=== PATIENT | female | born 1985 | race Caucasian/White ===

== ENCOUNTER 2019-03-10 00:58 | Emergency (ER) | payer OTHER ==
[2019-03-10 02:45] VITALS: BP 106/70; PULSE 87; TEMP 98; BMI 25.7
[2019-03-10 03:33] LABS: BASO % 0.6 % (0-2.0); EOS % 2.6 % (0-4.5); HEMATOCRIT 37.7 % (32.4-45.2); LYMPH % 28.2 % (8-40); MCH 26.7 pg (25.7-33.7); MCHC 31.9 g/dl (32.0-36.0); MEAN CELL VOLUME 83.7 fl (80-96); MONO % 6.5 % (3.8-10.2); NEUT % 62.1 % (42.8-82.8); PLATELET COUNT 349 K/MM3 (134-434); RDW 15.1 % (11.6-15.6); WHITE BLOOD COUNT 6.7 K/mm3 (4.0-10.0)
[2019-03-10 04:04] LABS: ALBUMIN 3.2 g/dl (3.4-5.0); BILIRUBIN,TOTAL 0.5 mg/dL (0.2-1); BLOOD UREA NITROGEN 10.7 mg/dL (7-18); CALCIUM 8.5 mg/dL (8.5-10.1); CREATININE 0.7 mg/dL (0.55-1.3); MAGNESIUM 2.3 mg/dL (1.8-2.4); POTASSIUM 3.9 mmol/L (3.5-5.1); TOT PROT 6.6 g/dl (6.4-8.2)
--- NOTE | 2019-03-10 04:23 | PDOC ---
History of Present Illness - General Chief Complaint: Palpitations Stated Complaint: PALPITATIONS Time Seen by Provider: 03/10/19 02:43 - History of Present Illness Initial Comments: Annalisa Krishnamurthy is a 34yo currently 2wks who presents with intermittent palpitations. She states that she feels as though her heart is racing. She has been having similar sensations for at least a month, and she was told that it was "due to hormones" previously. She also reports that she had this same sensation years ago, and she was worked up by cardiology including a holter monitor, but she never required any interventions or medications. She denies any chest pain, difficulty breathing, pleuritic pain, lightheadedness, or other symptoms associated with the palpitations. She says that she stopped drinking coffee, most recently had only 1 cup on Friday, because she thought that might be contributing. She also stopped yesterday because she thought that might also be related to the sensation, but she continued to have episodes of palpitations today. She presented to the ED today because the sensation occured 5 times throughout the day. Past History - Past Medical History Allergies/Adverse Reactions: Allergies Allergy/AdvReac Type Severity Reaction Status Date / Time shellfish derived Allergy Swelling Verified 03/10/19 02:45 Home Medications: Ambulatory Orders Iron 18 mg PO DAILY 01/07/16 Meclizine HCl [Antivert -] 25 mg PO TID PRN #15 tablet 03/24/18 Asthma: Yes (SEASONAL) COPD: No - Suicide/Smoking/Psychosocial Hx Smoking History: Never smoked Information on smoking cessation initiated: No Hx Alcohol Use: No Drug/Substance Use Hx: No Substance Use Type: None Review of Systems - Review of Systems Comments:: General: No fevers, no chills, no weight or appetite change, no malaise HEENT: No changes in vision, no changes in hearing, no congestion, no sore throat CV: No chest pain, + palpitations, no LE edema Pulm: No SOB, no cough, no wheezing GI: No nausea or vomiting, no change in bowel habits, no melena : No frequency, no urgency, no dysuria Musc: No back pain, no joint swelling, no recent injury Skin: No rash, no lesions, no erythema Endo: No excessive thirst, no heat/cold intolerance Heme: No unusual bruising or bleeding, no swollen glands Neuro: No syncope, no numbness/tingling, no focal weakness Vasc: No claudication Psych: No recent change in mood, no SI or HI *Physical Exam - Vital Signs Last Vital Signs Temp Pulse Resp BP Pulse Ox 98.0 F 87 17 106/70 98 03/10/19 00:58 03/10/19 00:58 03/10/19 00:58 03/10/19 00:58 03/10/19 00:58 - Physical Exam Comments: General: Comfortable, no acute distress HEENT: PERRL, EOMI, MMM, voice normal, normal neck ROM, no LAD Cards: RRR, no murmur appreciated Pulm: Comfortable on room air, clear to auscultation bilaterally Abd: Soft, nontender, nondistended : No CVA tenderness Ext: Atraumatic. No LE edema. ROM intact Vasc: Extremities WWP Skin: Normal color, no rashes or lesions Neuro: A&Ox3, CN grossly intact, normal speech, motor/sensory grossly intact and symmetric Psych: Mood appropriate to situation ED Treatment Course - LABORATORY CBC & Chemistry Diagram: 03/10/19 03:21 03/10/19 03:21 - ADDITIONAL ORDERS Additional order review: Laboratory Results 03/10/19 03/10/19 03/10/19 03:21 03:21 03:21 WBC 6.7 RBC 4.50 Hgb 12.0 Hct 37.7 MCV 83.7 MCH 26.7 MCHC 31.9 L RDW 15.1 Plt Count 349 D MPV 8.0 D Absolute Neuts (auto) 4.2 Neutrophils % 62.1 Lymphocytes % 28.2 D Monocytes % 6.5 Eosinophils % 2.6 Basophils % 0.6 Nucleated RBC % 0 Sodium 142 Potassium 3.9 Chloride 109 H Carbon Dioxide 27 Anion Gap 5 L BUN 10.7 Creatinine 0.7 Est GFR (CKD-EPI)AfAm 131.94 Est GFR (CKD-EPI)NonAf 113.84 Random Glucose 101 Calcium 8.5 Phosphorus 4.4 Magnesium 2.3 Total Bilirubin 0.5 AST 13 L ALT 22 Alkaline Phosphatase 120 H Total Protein 6.6 Albumin 3.2 L TSH 1.33 Free T4 1.08 03/10/19 03:21 RBC 4.50 MCV 83.7 MCHC 31.9 L RDW 15.1 MPV 8.0 D Neutrophils % 62.1 Lymphocytes % 28.2 D Monocytes % 6.5 Eosinophils % 2.6 Basophils % 0.6 - RADIOLOGY Radiology Studies Ordered: Category Date Time Status CHEST PA & LAT [RAD] Stat Radiology 03/10/19 03:16 Ordered Medical Decision Making - Medical Decision Making 03/10/19 04:11 Annalisa Krishnamurthy is a 34yo currently 2wks who presents with intermittent palpitations. She has had the palpitations intermittently for several years; they had resolved but recurred over the last month of her . She denies any associated chest/pleuritic pain, SOB, diaphoresis, lightheadedness, or nausea. She is currently asymptomatic. Ms Krishnamurthy reports that she was previously evaluated several years ago by cardiology and had a holter monitor at home. - Currently, HR is in 70's. Exam benign, no concerning findings - Palpitations could be due to lack of sleep, anxiety, thyroid abnormalities, anemia, electrolyte disturbance, caffeine intake. Less likely to be cardiac in nature as she apparently had an extensive cardiology workup in the past, but cannot rule out - CBC, CMP, mag, phos, TSH, T4, EKG, CXR 03/10/19 04:24 - Labs reviewed. Unremarkable, no concerning changes - EKG w/ NSR, HR 76, normal axis, normal intervals, no ST changes. Normal EKG - CXR to be completed - Will most likely d/c home pending xray 03/10/19 04:54 - CXR without focal abnormalities - Updated Ms Krishnamurthy regarding her results. Will refer to cardiology for follow up. Discussed return precautions at length. Discussed with Dr Humphreys. Nolvia Jimenez PGY2 *DC/Admit/Observation/Transfer Diagnosis at time of Disposition: Palpitations - Discharge Dispostion Disposition: HOME Condition at time of disposition: Stable Decision to Admit order: No - Referrals Referrals: Samuel Kauffman MD [Primary Care Provider] - Ishaan Sapp MD [Staff Physician] - - Patient Instructions Printed Discharge Instructions: DI for Palpitations Additional Instructions: Discharge Instructions: You were seen in the emergency department for palpitations. Your blood tests, EKG, and chest xray were all normal. Home Care and Follow Up: - Continue to take all home medications as previously prescribed - It is OK to continue to breastfeed or pump. This will not affect your symptoms - Keep track of when you feel palpitations. They could be related to lack of sleep or caffeine intake. - You have been given contact information for a federal judicial law clerk, Dr Dolan. Call to make an appointment for within the next week as you may need additional testing. - Seek immediate care if you have continued or worsening symptoms, chest pain, difficulty breathing, lightheadedness, or any other concerning symptom or medical emergency. - Post Discharge Activity
--- NOTE | 2019-03-10 04:44 | PDOC ---
Documentation entered by Roz Valenzuela SCRIBE, acting as scribe for Gem Humphreys DO. Gem Humphreys DO: This documentation has been prepared by the Bianca stratton Brenda, SCRIBE, under my direction and personally reviewed by me in its entirety. I confirm that the documentation accurately reflects all work , treatment, procedures, and medical decision making performed by me. Attending Attestation - Resident Resident Name: Nolvia Jimenez - ED Attending Attestation I have performed the following: I have examined & evaluated the patient, The case was reviewed & discussed with the resident, I agree w/resident's findings & plan, Exceptions are as noted - HPI HPI: 03/10/19 02:54 Agree with resident's exam. - Physicial Exam PE: 03/10/19 04:25 The patient is a 34 year old female, 2 weeks , with a significant PMH of heart palpitations, who presents to the emergency department with palpitations. The patient denies shortness of breath, headache and dizziness. Denies fever, chills, nausea, vomiting, diarrhea and constipation. Allergies: Shellfish derived Past surgical history: Not reported Social history: Denies PCP: Dr. Kaley Kauffman - Medical Decision Making 03/10/19 04:43 34-year-old female with an episode of palpitations now resolved EKG labs and chest x-ray were unremarkable Will DC with recommended outpatient cardiology follow-up
--- NOTE | 2019-03-10 08:31 | EKG ---
Test Reason : Blood Pressure : / mmHG Vent. Rate : 076 BPM Atrial Rate : 076 BPM P-R Int : 152 ms QRS Dur : 094 ms QT Int : 378 ms P-R-T Axes : 065 038 047 degrees QTc Int : 425 ms NORMAL SINUS RHYTHM NORMAL ECG WHEN COMPARED WITH ECG OF 07-JAN-2016 19:13, PREMATURE SUPRAVENTRICULAR COMPLEXES ARE NO LONGER PRESENT Confirmed by LEISA GRIGGS, MARSHA ([id number]) on 03/10/2019 8:31:24 AM Referred By: Confirmed By:MARSHA DE LA FUENTE MD
== END 2019-03-10 05:00 | disposition home or self-care (01) ==
LOC: JER 00:58
DX: R00.2 Palpitations (principal); J30.2 Other seasonal allergic rhinitis
CPT/HCPCS: 36415; 71046-TC-FY; 80053; 83735; 84100; 84439; 84443; 85025; 93005; 93010; 99281-25

== ENCOUNTER 2023-07-27 17:47 | Emergency (ER) | payer OTHER ==
[2023-07-27 17:57] VITALS: RESP 18; TEMP 98; BMI 23.1
[2023-07-27] MEDS ORDERED: IBUPROFEN 400 MG TABLET (FP) PO ONE (19:38)
[2023-07-27] MEDS ORDERED: LORazepam 2 MG TABLET PO ONE (20:48)
[2023-07-27] MEDS ORDERED: LORazepam 0.5 MG TABLET ONE (20:50)
[2023-07-27 21:25] VITALS: BP 108/63; PULSE 84
== END 2023-07-27 22:53 | disposition home or self-care (01) ==
LOC: JER 17:47
DX: R00.0 Tachycardia, unspecified (principal); R07.9 Chest pain, unspecified; R42 Dizziness and giddiness; R00.2 Palpitations
CPT/HCPCS: 71046-TC-FY; 84703; 93005; 93010; 99285-25